=== PATIENT | female | born 1975 | race African-American/Black ===

== ENCOUNTER 2020-06-12 10:23 | Emergency (ER) | payer SELFPAY ==
[~2020-06-12] VITALS: Ht 162.6 cm; Wt 118.5 kg
[2020-06-12] MEDS ORDERED: PROPARACAINE OPHTH 0.5%, 15ML ONE (11:15)
[2020-06-12] MEDS ORDERED: FLUORESCEIN OPHTHALMIC 1 MG STRIP ONE (11:15)
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
[2020-06-12] MEDS ORDERED: PROPARACAINE OPHTH 0.5%, 15ML EACHEYE ONE (11:30)
[2020-06-12] MEDS ORDERED: FLUORESCEIN OPHTHALMIC 1 MG STRIP EACHEYE ONE (11:30)
[2020-06-12 12:04] VITALS: BP 146/91
--- NOTE | 2020-06-12 12:13 | NUR ---
PT REC'VD DISCHARGE INSTRUCTIONS AND EDUCATION. PT HAD NO FURTHER QUESTIONS. PT, WITH SPOUSE, AMBULATED TO DC AREA, STEADY GAIT.
== END 2020-06-12 12:15 | disposition home or self-care (01) ==
LOC: ED 12:00
DX: H10.023 Other mucopurulent conjunctivitis, bilateral (principal); I10 Essential (primary) hypertension; Z90.49 Acquired absence of other specified parts of digestive tract
CPT/HCPCS: 99283